=== PATIENT | male | born 1990 | race Caucasian/White ===

== ENCOUNTER 2016-07-19 12:04 | Emergency (ER) | payer OTHER | END 2016-07-19 14:19 | disposition home or self-care (01) | LOC: ER 12:04 | DX: Z51.81 Encounter for therapeutic drug level monitoring (principal); R11.0 Nausea; R05 Cough; R53.1 Weakness; F20.0 Paranoid schizophrenia; F31.9 Bipolar disorder, unspecified; Z79.899 Other long term (current) drug therapy | CPT/HCPCS: 36415 ==

== ENCOUNTER 2016-08-22 14:56 | Emergency (ER) | payer OTHER | END 2016-08-22 16:38 | disposition home or self-care (01) | LOC: ER 14:56 | DX: R53.83 Other fatigue (principal); F31.9 Bipolar disorder, unspecified; F20.9 Schizophrenia, unspecified | CPT/HCPCS: 36415 ==